=== PATIENT | male | born 1995 | race Caucasian/White ===

== ENCOUNTER 2016-12-03 15:43 | Emergency (ER) | payer BC ==
--- NOTE | 2016-12-03 16:16 | UC ---
Complaint Male HPI - HPI Summary HPI Summary: 21 YEAR OLD MALE PRESENTS WITH COMPLAINS OF RASH. - History of Current Complaint Stated Complaint: PERSONAL Time Seen by Provider: 12/03/16 16:15 - Allergies/Home Medications Allergies/Adverse Reactions: Allergies Allergy/AdvReac Type Severity Reaction Status Date / Time No Known Allergies Allergy Verified 12/03/16 16:17 Home Medications: Home Medications diPHENhydraMINE PO* [Benadryl PO 25 MG TAB*] 50 mg PO BEDTIME PRN 12/03/16 [ History Confirmed 12/03/16] PMH/Surg Hx/FS Hx/Imm Hx - Surgical History Surgical History: None - Social History Substance Use Type: None - Immunization History Vaccination Up to Date: Yes Review of Systems Constitutional: Negative Skin: Rash Eyes: Negative ENT: Negative Respiratory: Negative Cardiovascular: Negative Gastrointestinal: Negative Genitourinary: Negative Motor: Negative Neurovascular: Negative Musculoskeletal: Negative Neurological: Negative Psychological: Negative All Other Systems Reviewed And Are Negative: Yes Physical Exam Triage Information Reviewed: Yes Eye Exam: Normal ENT Exam: Normal Dental Exam: Normal Neck exam: Normal Neck: Positive: 1 Respiratory Exam: Normal Cardiovascular Exam: Normal Abdominal Exam: Normal Musculoskeletal Exam: Normal Neurological Exam: Normal Psychological Exam: Normal Skin: Positive: rashes, Other - SCABIES Complaint Male Course/Dx - Course Course Of Treatment: SCABIES - Differential Dx/Diagnosis Provider Diagnoses: SCABIES Discharge - Discharge Plan Condition: Stable Disposition: HOME Prescriptions: Permethrin [Elimite] 5 % EX ONCE #2 tube Patient Education Materials: Scabies (ED) Referrals: Non Staff,Doctor [Primary Care Provider] - If Needed
[2016-12-03 16:22] VITALS: BP 109/52
== END 2016-12-03 16:35 | disposition home or self-care (01) ==
LOC: UCCORT 15:43
DX: B86 Scabies (principal)
CPT/HCPCS: 99202; G0463

== ENCOUNTER 2019-08-06 19:09 | Emergency (ER) | payer SELFPAY ==
[2019-08-06 19:18] VITALS: BP 118/68
--- NOTE | 2019-08-06 19:41 | UC ---
Cardiac HPI - HPI Summary HPI Summary: 24-year-old male comes in with a chief complaint of chest pain and palpitations. Patient reports he was being active and running around at work today at about 1835 hrs. and had a sudden onset of left sided chest pain lasted about 1 minute when it was quite strong about 8 out of 10. He reports it doubled him over in pain. The pain slowly started to dissipate and about 20 minutes later he had another episode of the same pain. He could make the pain worse by taking a deep breath. He felt like his heart was racing during this time. When he walked home from work he did feel lightheaded. Patient reports he had a history of palpitations when he was a teenager and had an echocardiogram at age 17. His father has a diagnosis of cardiomyopathy that the patient reports it is hereditary. No recent fevers or chills or upper respiratory tract infection symptoms. - History of Current Complaint Chief Complaint: UCChestPain Stated Complaint: CHEST PALPITATIONS Time Seen by Provider: 08/06/19 19:22 Pain Intensity: 4 - Allergy/Home Medications Allergies/Adverse Reactions: Allergies Allergy/AdvReac Type Severity Reaction Status Date / Time No Known Allergies Allergy Verified 08/06/19 19:18 Home Medications: Home Medications NK [No Home Medications Reported] 08/06/19 [History Confirmed 08/06/19] PMH/Surg Hx/FS Hx/Imm Hx Previously Healthy: Yes Cardiovascular History: Other - Palpitations - Surgical History Surgical History: None - Family History Known Family History: Positive: Cardiac Disease - Father with cardiomyopathy which patient reports is hereditary. - Social History Alcohol Use: None Substance Use Type: None Smoking Status (MU): Light Every Day Tobacco Smoker Type: Cigarettes Amount Used/How Often: 1/2 PPD - Immunization History Vaccination Up to Date: Yes Review of Systems All Other Systems Reviewed And Are Negative: Yes Constitutional: Positive: Other - SEE HPI Skin: Positive: Negative Eyes: Positive: Negative ENT: Positive: Negative Respiratory: Positive: Shortness Of Breath Cardiovascular: Positive: Palpitations, Chest Pain Gastrointestinal: Positive: Negative Motor: Positive: Negative Neurovascular: Positive: Negative Musculoskeletal: Positive: Negative Neurological/Mental Status: Positive: Negative Psychological: Positive: Negative Is Patient Immunocompromised?: No Physical Exam Triage Information Reviewed: Yes Appearance: Well-Appearing, No Pain Distress, Well-Nourished Vital Signs: Initial Vital Signs Temp 99.0 F 08/06/19 19:13 Pulse 69 08/06/19 19:13 Resp 16 08/06/19 19:13 BP 118/68 08/06/19 19:13 Pulse Ox 100 08/06/19 19:13 Vital Signs Reviewed: Yes Eye Exam: Normal Eyes: Positive: Conjunctiva Clear Neck: Positive: Supple Respiratory: Positive: Lungs clear, Normal breath sounds, No respiratory distress Cardiovascular: Positive: RRR Musculoskeletal: Positive: Strength Intact, ROM Intact Neurological: Positive: Alert, Muscle Tone Normal Psychological: Positive: Age Appropriate Behavior Skin Exam: Normal Diagnostics - EKG Cardiac Rate: NL - AT 1910 Cardiac Rhythm: Sinus: Normal - 63BPM Ectopy: None ST Segment: Normal - Assessment/Plan Course Of Treatment: I discussed the EKG with the patient I do not see any ischemic changes or irregular heartbeats on the EKG. Signs are stable. I recommended further evaluation in the emergency department for chest pain, palpitations, lightheadedness and shortness of breath. - Clinical Impression Provider Diagnosis: Chest pain, Palpitation Discharge ED - Sign-Out/Discharge Documenting (check all that apply): Patient Departure All imaging exams completed and their final reports reviewed: No Studies - Discharge Plan Condition: Stable Disposition: HOME Patient Education Materials: Chest Pain (ED), Heart Palpitations (ED) Referrals: [facility] REFERRAL [Outside] Additional Instructions: GO DIRECTLY TO THE EMERGENCY DEPARTMENT FOR FURTHER EVALUATION AND CARE. - Billing Disposition and Condition Condition: STABLE Disposition: Home
== END 2019-08-06 19:47 | disposition home or self-care (01) ==
LOC: UCCORT 19:09
DX: R07.9 Chest pain, unspecified (principal); R00.2 Palpitations; R06.02 Shortness of breath; F17.210 Nicotine dependence, cigarettes, uncomplicated
CPT/HCPCS: 93005; 99212; G0463

== ENCOUNTER 2019-08-26 11:47 | Emergency (ER) | payer BC, OTHER ==
--- NOTE | 2019-08-26 11:55 | UC ---
General HPI - HPI Summary HPI Summary: 24yo male presenting with cough, shortness of breath, nasal discharge, and chills and hot flashes since yesterday afternoon. States he feels chest discomfort with coughing and taking deep breaths. Thinks it may be muscle pain from coughing. Denies chest pain and difficulty breathing. Denies wheezing. Notes nasal discharge but no congestion. Denies sore throat. Notes nausea yesterday but none today. Denies vomiting, diarrhea, and abdominal pain. Denies decreased appetite. Denies taking anything for symptom relief. Notes h/o asthma as a child. Current every day smoker 1/2ppd. Denies known ill contacts but believes there have been rumors about ill coworkers and possible covid 19. - History of Current Complaint Chief Complaint: UCGeneralIllness Stated Complaint: COUGH SHORTNESS OF BREATH Hx Obtained From: Patient - Allergy/Home Medications Allergies/Adverse Reactions: Allergies Allergy/AdvReac Type Severity Reaction Status Date / Time No Known Allergies Allergy Verified 08/26/19 11:53 Home Medications: Home Medications NK [No Home Medications Reported] 08/06/19 [History Confirmed 08/26/19] PMH/Surg Hx/FS Hx/Imm Hx Psychological History: Depression, Other - ADHD - Surgical History Surgical History: None - Family History Known Family History: Positive: Cardiac Disease - Father with cardiomyopathy which patient reports is hereditary. - Social History Alcohol Use: None Substance Use Type: None Smoking Status (MU): Light Every Day Tobacco Smoker Type: Cigarettes Amount Used/How Often: 1/2 PPD - Immunization History Vaccination Up to Date: Yes Review of Systems All Other Systems Reviewed And Are Negative: Yes Constitutional: Positive: Chills ENT: Positive: Nasal Discharge Respiratory: Positive: Shortness Of Breath, Cough Cardiovascular: Positive: Negative Gastrointestinal: Positive: Nausea - yesterday. Negative: Abdominal Pain, Vomiting, Diarrhea Musculoskeletal: Positive: Negative. Negative: Myalgia Neurological/Mental Status: Positive: Negative Physical Exam - Summary Physical Exam Summary: Vital Signs Reviewed: Yes A+Ox3, no distress, well-appearing Eyes: Conjunctiva Clear ENT: Hearing grossly normal, TM x 2 clear, moist, uvula midline, no exudate, + mild pharyngeal erythema Neck: Positive: Supple, no LAD Respiratory: Positive: No respiratory distress, No accessory muscle use + CTA throughout no w/r, speaking in full complete sentences without issue Cardiovascular: RRR nl s1, s2 no m/r Musculoskeletal Exam: TOMAS x 4 without difficulty Neurological: Positive: Alert Psychological: Positive: age appropriate behavior Skin: Positive: no rash, no ecchymosis Vital Signs: Vital Signs (72 hours) 08/26/19 12:17 Temperature 97.6 F Pulse Rate 82 Respiratory 15 Rate Blood Pressure 119/78 (mmHg) O2 Sat by Pulse 100 Oximetry Course/Dx - Course Course Of Treatment: Flu test was negative. VS WNL and patient speaking in complete sentences without issue. I discussed flu result with the patient and informed him that he would receive the covid19 results within the next 3-5 days. I discussed self quarantining until results have been received and he is advised otherwise by a healthcare provider. I provided the patient with an inhaler for shortness of breath. Instructed to go to the ED if he experiences worsening shortness of breath/difficulty breathing. Patient voiced understanding and agreed with treatment plan. All questions answered to the best of my abilities. - Diagnoses Provider Diagnosis: Shortness of breath, Flu-like symptoms Discharge ED - Sign-Out/Discharge Documenting (check all that apply): Patient Departure All imaging exams completed and their final reports reviewed: No Studies - Discharge Plan Condition: Stable Disposition: HOME Patient Education Materials: Viral Syndrome (ED) Forms: COVID-19 Tested & Isolation Referrals: Non Staff,Doctor [Primary Care Provider] - Additional Instructions: As discussed, your flu test was negative today. You received testing for covid 19. You will be notified of the results within 3- 5 days. You need to self-quarantine for the next 14 days unless otherwise advised by a healthcare provider. This means staying home and no contact with anyone who lives with you. You should not share your bedroom or bathroom. Food should be left outside your door for you to take once the other person has walked away. You may take tylenol as directed for fever and pain relief. Increase your fluid intake. Go to the nearest emergency room or call 911 if you experience new or worsening symptoms. - Billing Disposition and Condition Condition: STABLE Disposition: Home
[2019-08-26 12:18] VITALS: BP 119/78
[2019-08-26] MEDS ORDERED: Albuterol HFA INHALER* 8 gm MDI INH ONE ×2 (12:18→12:20)
[2019-08-26 12:31] LABS: Influenza A Molecular Negative (Negative); Influenza B Molecular Negative (Negative)
--- NOTE | 2019-08-28 18:38 | UC ---
- Progress Note Progress Note: Covid 19 nasopharyngeal results from August 26, 2019 come back as undetected. Nursing to call patient and inform the patient of the results. Course/Dx - Diagnoses Provider Diagnoses: Shortness of breath, Flu-like symptoms Discharge ED - Sign-Out/Discharge Documenting (check all that apply): Patient Departure All imaging exams completed and their final reports reviewed: No Studies - Discharge Plan Condition: Stable Disposition: HOME Patient Education Materials: Viral Syndrome (ED) Forms: COVID-19 Tested & Isolation Referrals: Non Staff,Doctor [Primary Care Provider] - Additional Instructions: As discussed, your flu test was negative today. You received testing for covid 19. You will be notified of the results within 3- 5 days. You need to self-quarantine for the next 14 days unless otherwise advised by a healthcare provider. This means staying home and no contact with anyone who lives with you. You should not share your bedroom or bathroom. Food should be left outside your door for you to take once the other person has walked away. You may take tylenol as directed for fever and pain relief. Increase your fluid intake. Go to the nearest emergency room or call 911 if you experience new or worsening symptoms. - Billing Disposition and Condition Condition: STABLE Disposition: Home
== END 2019-08-26 12:40 | disposition home or self-care (01) ==
LOC: UCCORT 11:47
DX: R06.02 Shortness of breath (principal); R05 Cough; J34.89 Other specified disorders of nose and nasal sinuses; R68.83 Chills (without fever); Z20.828 Contact with and (suspected) exposure to other viral communicable diseases; F17.210 Nicotine dependence, cigarettes, uncomplicated
CPT/HCPCS: 87635; 99212; A9270-GY; G0463; G2023